=== PATIENT | female | born 1970 | race African-American/Black ===

== ENCOUNTER → 2020-03-03 | Outpatient (CLI) | payer BC, OTHER | LOC: ULTRA 12:39 | PROVIDERS: ATTEND Nurse Practitioner | DX: K76.0 Fatty (change of) liver, not elsewhere classified (principal); J32.8 Other chronic sinusitis; Z90.710 Acquired absence of both cervix and uterus ==

== ENCOUNTER → 2020-06-23 | Outpatient (CLI) | payer BC, OTHER | LOC: LAB 09:54 | PROVIDERS: ATTEND Family Medicine | DX: R50.9 Fever, unspecified (principal); J06.9 Acute upper respiratory infection, unspecified; Z20.828 Contact with and (suspected) exposure to other viral communicable diseases ==